=== PATIENT | female | born 1965 | race African-American/Black ===

== ENCOUNTER 2024-08-09 11:50 | Outpatient (CLI) | payer OTHER, SELFPAY ==
--- OUTSIDE RECORDS SUMMARY | 2024-08-09 11:56 | XMS_ITS | Clinical Summary ---
Author Organization [facility] [place] Address [address] [place] [address] Care Team Providers Care Medical Device Assembler Name Role Phone Rebecca Carlton DO Primary Care Provider Herbert Delatorre MD Unavailable Allergies Active Allergy Reactions Criticality Noted Date Comments Adhesive Hives,Itching Medium 04/15/2024 SURGICAL TAPE Lidocaine Hives,Itching Medium 04/15/2024 Medications amLODIPine (NORVASC) 2.5 mg tablet TAKE 1 TABLET BY MOUTH DAILY IN ADDITION TO 5 MG TABLET FOR A TOTAL OF 7.5 MG DAILY 30 tablet 4 Active amLODIPine (NORVASC) 5 mg tabletIndication s:Paroxysmal atrial fibrillation (HCC),HTN, goal below 130/80,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,Palpita tions,Class 2 severe obesity due to excess calories with serious comorbidity and body mass index (BMI) of 35.0 to 35.9 in adult (HCC) TAKE 1 TABLET BY MOUTH DAILY IN ADDITION TO 2.5 MG TABLET FOR A TOTAL OF 7.5 MG DAILY 30 tablet 4 Active metoprolol XL (TOPROL-XL) 200 mg extended release tabletIndication s:Paroxysmal atrial fibrillation (HCC),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,HTN, goal below 130/80 Take 1 tablet (200 mg total) by mouth daily 90 tablet 1 4 Active atorvastatin (LIPITOR) 20 mg tabletIndication s:Paroxysmal atrial fibrillation (HCC),HTN, goal below 130/80 Take 1 tablet (20 mg total) by mouth daily 90 tablet 3 4 Active aspirin 81 mg chewable tablet Take 1 tablet (81 mg total) by mouth daily 90 tablet 3 4 Active naproxen (NAPROSYN) 500 mg tablet Take 1 tablet (500 mg total) by mouth 2 (two) times a day with meals 30 tablet 4 Active cyclobenzaprine (FLEXERIL) 10 mg tablet Take 1 tablet (10 mg total) by mouth 3 (three) times a day as needed for muscle spasms for up to 20 doses 20 tablet 4 Active HYDROcodone-acet aminophen (NORCO) 5-325 mg per tabletIndication s:Pain Take 1 tablet by mouth every 6 (six) hours as needed for pain for up to 10 doses 10 tablet 4 Active semaglutide (Wegovy) 0.25 mg/0.5 mL auto-injector Inject 0.25 mg under the skin every 7 days Active albuterol HFA (PROVENTIL HFA,VENTOLIN HFA,PROAIR HFA) 90 mcg/actuation inhalerIndicatio ns:Dyspnea on exertion INHALE 2 PUFFS BY MOUTH EVERY 6 HOURS NEEDED FOR WHEEZING OR SHORTNESS OF BREATH. OK TO SUBSTITUTE IF ALTERNATIVE CHEAPER 8.5 g 3 5 Active Active Problems Problem Noted Date Diagnosed Date ASHLEY (obstructive sleep apnea) 12/11/2023 Assessment & Plan (08/03/2024 2:55 PM CDT): The patient never did get a new nasal pillows style of mask through [facility] home care services. I will resend an order to show the patient a variety of new styles of nasal pillows type mask. She will follow up here in 2 months. Her supplier is [facility] home care services. I did tell her that she does not hear from them, then we will find her a new supplier. Assessment & Plan (04/15/2024 11:54 AM FACILITIES AND GROUNDS DIRECTOR): Due to continued symptoms, the patient will continue CPAP at 9 cm water pressure. I did ask the patient to resume the use of her CPAP. I did inform her that she has a higher likelihood of heart attacks, strokes, irregular heartbeats and possible without wearing CPAP. The patient verbalized understanding. I have sent another order for the patient to receive nasal pillows to use with her CPAP. I did ask the patient to call back into the office if she has not heard from [facility] by the middle of next week. She verbalized understanding. Assessment & Plan (12/11/2023 12:04 PM CDT): Due to continued symptoms, the patient will continue CPAP at 9 cm water pressure. I have encouraged the patient to wear the CPAP at least 4 hours a night on 70% of the nights. DME is [facility] Coronary artery disease of n ative artery of solomon heart with stable angina pectoris 07/07/2023 Anticoagulation management encounter 12/22/2022 Mixed hyperlipidemia 12/22/2022 Cardiac device in situ 08/14/2020 Dyspnea on exertion 05/04/2020 HTN, goal below 130/80 05/04/2020 Atrial fibrillation 04/09/2020 Palpitations 04/09/2020 Cigarette nicotine dependence in remission 04/09 Family history of coronary artery disease 2020 Acute bronchitis 09/11/2016 Sinusitis 09/11/2016 Allergic conjunctivitis 06/27/2016 Herpes zoster 06/27/2016 Ganglion cyst of wrist 02/14/2016 Goiter diffuse, nontoxic 01/01/2016 Lumbar strain 01/01/2016 Wheezing 05/15/2015 Resolved Problems Problem Noted Date Diagnosed Date Resolved Date Snoring 04/15/2023 12/11/2023 Assessment & Plan (04/15/2023 3:26 PM FACILITIES AND GROUNDS DIRECTOR): The patient presents with snoring and daytime fatigue. I have recommended proceeding with a nocturnal polysomnogram with a split night protocol if necessary and no MSLT. Her thyroid also seems enlarged and I will check thyroid function test. Coronary artery disease of n ative artery of solomon heart with stable angina pectoris 11/20/2020 06/13/2022 Abnormal stress test 05/04/2020 021 Precordial pain 04/09/2020 08/14/2020 Class 2 obesity with body ma ss index (BMI) of 35.0 to 35.9 in adult 04/09/2020 11/20/2020 Tobacco abuse 10/03/2014 08/14/2020 Encounters Date Type Department Care Team Description 08/03/2024 2:15 PM CDT Office Visit [facility] Medical Group Pulmonology [address] [place] [address] [place] [id number] Dat Jnasen MD ASHLEY (obstructive sleep apnea) (Primary Dx) from Last 3 Months Immunizations Immunization Administration Dates Next Due Tdap 10/15/2021 Surgical History Surgery Date Site/Laterality Comments APPENDECTOMY CARDIAC CATHETERIZATION Medical History Medical History Date Comments Atrial fibrillation (HCC) Chest pain Hypertension Hyperlipidemia Abnormal stress test 05/04/2020 Family History Medical History Relation Name Comments Heart disease Maternal Grandfather Heart disease Mother Open Heart Mother Relation Name Status Comments Father Alive Maternal Grandfather Mother Alive Social History Tobacco Use Types Packs/Day Years Used Date Smoking Tobacco: Former Cigarettes 0.3 30 0 02/27/1988 - 02/26/2018 Smokeless Tobacco: Former Quit: 02/2019 Tobacco Cessation:Counseling Given: Not Answered Alcohol Use Standard Drinks/Week Comments Yes 0 (1 standard drink = 0.6 oz pur e alcohol) Personal Safety Answer Date Recorded Have you ever been in or are you currently in a harmful physical or emotional relationship or is someone making you feel afraid or unsafe? Denies 08/11/2023 Comments No Sex and Gender Information Value Date Recorded Sex Assigned at Not on file Legal Sex Female 5:30 PM FACILITIES AND GROUNDS DIRECTOR Gender Identity Female 11/20/2020 2:53 PM CDT Sexual Orientation Straight 11/20/2020 2: 53 PM CDT Obstetrics History Para Term AB IAB SAB Ectopic Multiple Livin g Live Births 3 Date Outcome GA Total Labor Labor/2nd/3rd Weight Sex Type Anes PTL Zaina A1 A5 Name Clin Last Filed Vital Signs Vital Sign Reading Time Taken Comments Blood Pressure 121/79 08/03/2024 2:30 PM CDT Pulse 72 08/03/2024 2:30 PM CDT Temperature 36.2 C (97.2 F) 08/03/2024 2:30 PM CDT Respiratory Rate 18 08/03/2024 2:30 PM CDT Oxygen Saturation 99% 08/03/2024 2:30 PM CDT Inhaled Oxygen Concentration - - Weight 102.5 kg (226 lb) 08/03/2024 2:30 PM CDT Height 170.4 cm (5' 7.09) 08/03/2024 2:30 PM CD T Body Mass Index 35.3 08/03/2024 2:30 PM CDT Plan of Treatment Health Maintenance Due Date Last Done Comments Cervical Cancer Screening 1965 Colon Cancer Screening-Colonoscopy 1965 Depression Screening 1965 Hepatitis C Screening 1965 Hepatitis B Screening 1983 Regular Well Visit/Exam 18-64 1983 Pneumococcal vaccine <65 (1 of 2 - PCV) 02/12/1984 Zoster Vaccine (1 of 2) 2015 Covid-19 Vaccine (3 - 2023-2 5 season) 2023 12/21/2020, 11/30/2020 Breast Cancer Screening-Mammogram 06/29/2024 06/30/2023, 05/13/2018, 05/13/2018, Additional history exists Influenza Vaccine (Season Ended) 2024 DTaP/Tdap/Td Vaccine (2 - Td or Tdap) 10/16/2031 10/15/2021 Medical Devices Implanted Type Area Sample Book Maker Device Identifier Shelf Expiration Date Model / Serial / Lot Medtronic Cardiac Rhythm Mgmt 9538 Reveal Linq Loop Recorder Cardiac - [id number] Implanted:Qty: 1 on 08/01/2020 by Herbert Delatorre MD at [facility] [employer] [id number] / / Procedures Procedure Name Priority Date/Time Associated Diagnosis Comments SCREENING MAMMOGRAM BILATERAL W FLORA Schedule Routine, Read Routine (OP Routine) 06/30/2023 2:27 PM CDT Screening mammogram, encounter for from Last 3 Months or Most Recently Relevant to Health Maintenance Results * Screening Mammogram Bilateral W Flora (06/30/2023 2:27 PM CDT) Anatomical Region Laterality Modality Breast Bilateral Mammography Impressions 07/01/2023 1:38 PM CDT BI-RADS ATLAS category (overall): 1 - Negative There is no mammographic evidence of malignancy. A 1 year screening mammogram is recommended. The patient has been or will be contacted. We recommend annual screening mammography for women at average risk of breast cancer beginning at age 40, based on guidelines of the [place] [employer] (ACR Practice Parameter for the Performance of Screening and Diagnostic Mammography) and [place] [employer]. For women with and elevated risk of breast cancer, please refer to the ACR Practice Parameter for specific screening recommendations. The patient will be entered into a reminder system with a target due date of 1 year for her next screening exam. Narrative 07/01/2023 1:38 PM CDT Screening Mammogram Bilateral W Flora: 06/30/23 The study was acquired using full field digital technology and interpreted from soft copy. 2D digital mammographic views, as well as 3D digital tomosynthesis were performed in the CC and MLO projections. CLINICAL: Screening mammogram, encounter for. No relevant medical history has been documented for this patient. No known family history of breast cancer. COMPARISONS: 05/13/2018 Breast Imaging Screening Outside Reference 07/30/2015 Breast Imaging Diagnostic Outside Reference 07/23/2015 Breast Imaging Screening Outside Reference BREAST TISSUE: The breasts have scattered areas of fibroglandular density. FINDINGS: Cardiac loop recorder in the inner posterior left breast is new from prior mammograms. No suspicious masses, suspicious calcifications, or other suspicious findings are seen within either breast. There has been no suspicious change. Rebecca Carlton DO IMG MAMMO PROCEDURES Final Result from Last 3 Months or Most Recently Relevant to Health Maintenance Insurance [facility]PP[facility] Address: [address] [address] [place] [address] WORKERS COMPENSATION GENERIC WORKERS COMPENSATION GENERIC Care Teams Medical Device Assembler Relationship Specialty Start Date End Date Rebecca Carlton DO [address] [place] [address] PCP - General 03/31/20 Herbert Delatorre MD [address] [place] [address] [employer] Cardiovascular Disease 05/04/20
--- OUTSIDE RECORDS SUMMARY | 2024-08-09 11:56 | XMS_ITS | Referral Summary ---
Author Organization [facility] Address [address] [place] [address] Care Team Providers Care Solvent Station Attendant Name Role Phone Rebecca Carlton DO Primary Care Provider Herbert Delatorre MD Unavailable Encounters Date Type Department Care Team Description 08/03/2024 2:15 PM CDT Office Visit [facility] Medical Group Pulmonology [address] [place] [address] Dat Jansen MD ASHLEY (obstructive sleep apnea) (Primary Dx) from Last 3 Months Allergies Active Allergy Reactions Criticality Noted Date Comments Adhesive Hives,Itching Medium 04/15/2024 SURGICAL TAPE Lidocaine Hives,Itching Medium 04/15/2024 Medications amLODIPine (NORVASC) 2.5 mg tablet TAKE 1 TABLET BY MOUTH DAILY IN ADDITION TO 5 MG TABLET FOR A TOTAL OF 7.5 MG DAILY 30 tablet 4 Active amLODIPine (NORVASC) 5 mg tabletIndication s:Paroxysmal atrial fibrillation (HCC),HTN, goal below 130/80,Coronary artery disease of [place] artery of [place] heart with stable angina pectoris,Palpita tions,Class 2 [...] s:Paroxysmal atrial fibrillation (HCC),Coronary artery disease of [place] artery of [place] heart with stable angina pectoris,HTN, goal below [...] new nasal pillows style of mask through [facility] home care services. I will resend an order to show the patient a variety of new styles of nasal pillows type mask. She will follow up here in 2 months. Her supplier is [facility] home care services. I did tell her that she does not hear from them, then we will find her a new supplier. Assessment & Plan (04/15/2024 11:54 AM ELEMENTARY SCHOOL TUTOR): Due to continued symptoms, the patient will [...] office if she has not heard from [facility] by the middle of next week. She verbalized understanding. Assessment & Plan (12/11/2023 12:04 PM CDT): Due to continued symptoms, the patient will continue CPAP at 9 cm water pressure. I have encouraged the patient to wear the CPAP at least 4 hours a night on 70% of the nights. DME is [facility] Coronary artery disease of n ative artery of akhi[place] heart with stable angina pectoris 07/07/2023 Anticoagulation [...] 12/11/2023 Assessment & Plan (04/15/2023 3:26 PM ELEMENTARY SCHOOL TUTOR): The patient presents with snoring and daytime fatigue. I have recommended proceeding with a nocturnal polysomnogram with a split night protocol if necessary and no MSLT. Her thyroid also seems enlarged and I will check thyroid function test. Coronary artery disease of n ative artery of akhi[place] heart with stable angina pectoris 11/20/2020 06/13/2022 Abnormal stress test 05/04/2020 021 Precordial pain 04/09/2020 08/14/2020 Class 2 obesity with body ma ss index (BMI) of 35.0 to 35.9 in adult 04/09/2020 11/20/2020 Tobacco abuse 10/03/2014 08/14/2020 Immunizations Immunization Administration Dates Next Due Tdap 10/15/2021 Social History Tobacco Use Types Packs/Day Years [...] on file Legal Sex Female 5:30 PM ELEMENTARY SCHOOL TUTOR Gender Identity Female 11/20/2020 2:53 PM CDT Sexual Orientation Straight 11/20/2020 2: 53 PM CDT Last Filed Vital Signs Vital Sign Reading [...] 08/03/2024 2:30 PM CDT Plan of Treatment Not on file Medical Devices Implanted Type Area Stave And Bolt Equalizer Device Identifier Shelf Expiration Date Model / Serial / Lot Medtronic Cardiac Rhythm Mgmt 9538 Reveal Linq Loop Recorder Cardiac - [id number] Implanted:Qty: 1 on 08/01/2020 by Herbert Delatorre MD at [facility] [employer] 9538 / / Procedures Procedure [...] age 40, based on guidelines of the [place] [employer] (ACR Practice Parameter for the Performance of Screening and Diagnostic Mammography) and [place] [employer]. For women [...] Most Recently Relevant to Health Maintenance Insurance [facility] WORKERS COMPENSATION GENERIC WORKERS COMPENSATION GENERIC Care Teams Solvent Station Attendant Relationship Specialty Start Date End Date Rebecca Carlton DO [address] [place] [address] PCP - General 03/31/20 Herbert Delatorre MD [address] [place] [address] Small Battery Plate Assembler Cardiovascular Disease 05/04/20
[2024-08-09 12:16] LABS: Hematocrit 39.0 % (37.0-47.0); Hemoglobin 12.7 g/dL (12.0-15.0); Mean Corpuscular HGB Conc 32.6 g/dl (32-36); Mean Corpuscular Hemoglobin 27.7 pg (26-34); Mean Corpuscular Volume 85.2 fl (80-100); Platelet Count Result 153 k/mm3 (150-375); Red Blood Count 4.58 M/mm3 (4.2-5.4); White Blood Count 4.0 K/mm3 (4.5-10.0)
[2024-08-09 12:30] LABS: Alanine Aminotransferase 16 U/L (6-35); Albumin Level 4.1 g/dL (3.5-5.1); Alkaline Phosphatase 90 U/L (38-126); Anion Gap 8 mmol/L (4-12); Aspartate Amino Transferase 25 U/L (14-36); Bilirubin,Total 1.0 mg/dL (0.2-1.3); Blood Urea Nitrogen 14 mg/dL (7-17); Calcium 9.4 mg/dL (8.4-10.2); Carbon Dioxide 27 mmol/L (22-30); Chloride 106 mmol/L (98-107); Cholesterol 192 mg/dL (0-200); Estimated Glomerular Filt Rate 55; Glucose 96 mg/dL (65-110); HDL Direct 50 mg/dL; Potassium 3.7 mmol/L (3.4-5.0); Sodium 141 mmol/L (137-145); Total Protein 7.9 g/dL (6.3-8.2); Triglycerides 84 mg/dL (<150)
[2024-08-09 12:31] LABS: Hemoglobin A1C. 5.5 % (<5.7)
[2024-08-09 12:58] LABS: Thyroid Stimulating Hormone 3.520 uIU/mL (0.465-4.680)
== END 2024-08-09 11:51 | disposition home or self-care (01) ==
LOC: ANHLAB 11:54
PROVIDERS: Visit Provider Internal Medicine
DX: I25.810 Atherosclerosis of coronary artery bypass graft(s) without angina pectoris (principal); E66.9 Obesity, unspecified
CPT/HCPCS: 36415; 80053; 80061; 83036; 84443; 85027